=== PATIENT | male | born 1950 | race Caucasian/White ===

== ENCOUNTER 2017-06-28 11:36 | Day surgery (SDC) | payer MEDICARE ==
--- NOTE | 2017-06-28 13:09 | Operative Note ---
Upper GI Endoscopy Procedure date: 06/28/17 Date of : 52 Procedure:Upper GI Endoscopy Esophagogastroduodenoscopy with TTS balloon dilation Indications: Mr. Tello is a 67-year-old gentleman with dysphagia and frequent postprandial regurgitation and emesis. He has had bloating, fullness and epigastric abdominal pressure especially postprandially. He reports no heartburn or reflux. He has been on Prilosec. He has taken MiraLAX for his constipation. He reports no odynophagia. He has had dark and possibly melanotic stools 3 times in the last episode occurred 3 weeks ago. The patient did have panendoscopy in December 2016. His EGD showed a duodenal polyp in the third portion and he did have Itzel ink injection and then snare cautery removal of this 1.3 cm tubular adenoma. The patient also had a large 18 mm splenic flexure polyp that was removed and was a tubular adenoma with 4 additional diminutive tubular adenomas removed in December 2016. The patient reports no weight loss. Performing Provider: Rob Leslie MD Referring Provider: Chacha Shields M.D. [facility] Sedation: MAC sedation Procedure: Prior to the procedure, a history and physical exam was performed, and patients medications and allergies were reviewed. The risks and benefits of the procedure and the sedation options and risks were discussed with the patient. All questions were answered and informed consent was obtained. The patient was brought to the procedure room. Patient identification and proposed procedure were verified by the physician and the nurse. The patient was placed in a left lateral decubitus position and the scope was passed under direct vision. Throughout the procedure, the patient's blood pressure, pulse, and oxygen saturations were monitored continuously. The endoscope was introduced through the mouth, and advanced to the second part of duodenum. The upper GI endoscopy was accomplished without difficulty. The patient tolerated the procedure well. Findings: The scope was passed directly into the upper esophagus and advanced to the third portion of the duodenum. There was Itzel Hematite the third portion and the post- polypectomy site was examined without any evidence of residual adenomatous polyp tissue. The post bulbar duodenum and duodenal bulb were normal with normal mucosa and conniventes. The scope was withdrawn through a normal duodenal bulb and pylorus into the stomach. There was moderate bile reflux with mild linear reactive gastritis. The remainder of the antrum, body and fundus of the stomach were grossly normal. Upon retroflexion there was a large 4-5 cm hiatal hernia. There was no evidence of paraesophageal hernia or gastric volvulus. The scope was then withdrawn into the esophagus. There was no evidence of reflux esophagitis or Fletcher's. There were tertiary contractions and evidence of moderate esophageal dysmotility. The entire esophagus was dilated to 60 Amharic/ 20 mm with a TTS hydrostatic balloon. There was evidence of resistance at the cricopharyngeus/UES. Immediate complications: None EBL (ml): 0 Impression: 1. Nonerosive gastroesophageal reflux disease with moderate/large hiatal hernia (5 cm) and moderate esophageal dysmotility with cricopharyngeal spasm status post dilation to 20 mm 2. Bile reflux with mild linear reactive gastritis Recommendations: I am going to have the patient resume a fiber bowel regimen (MiraLAX plus Metamucil) and promotility therapy (metoclopramide). We will discuss additional dietary measures. at [id number]
[2017-06-28 14:01] VITALS: BP 137/77
== END 2017-06-28 14:15 | disposition home or self-care (01) ==
LOC: SDC 11:36
PROVIDERS: Internal Medicine Gastroenterology
PROC: 0D758ZZ Dilation of Esophagus, Via Natural or Artificial Opening Endoscopic (ICD-10-PCS; principal; 2017-06-28 13:00)
DX: K21.9 Gastro-esophageal reflux disease without esophagitis (principal); K44.9 Diaphragmatic hernia without obstruction or gangrene; Z86.010 Personal history of colon polyps
CPT/HCPCS: C1726